=== PATIENT | male | born 1970 | race Caucasian/White ===

== ENCOUNTER 2016-11-03 22:11 | Observation (INO) ==
--- NOTE | 2016-11-03 22:39 | Emergency Department Report ---
General Adult HPI - General Chief complaint: Chest Pain Stated complaint: cp soa Time Seen by Provider: 11/03/16 22:16 Source: patient Mode of arrival: EMS Limitations: no limitations - History of Present Illness HPI narrative: 46-year-old male presents to emergency department with a chief complaint of left -sided chest discomfort. Patient noted onset of symptoms approximately 1 hour prior to arrival to the emergency department. Patient was shopping at [employer] when his symptoms began. Patient describes the pain as a dull pressure which he rates at 9/10 in the left chest. No radiation. Patient was given aspirin 324 mg by mouth times one by EMS prior to arrival to the emergency Department. Patient was also given a sublingual nitroglycerin trial which did not improve his discomfort. Symptoms have been persistent in nature since onset. No other complaints or associated symptoms. - Related Data Home Medications Medication Instructions Recorded Confirmed Atorvastatin [Lipitor] 1 tab PO HS 11/03/16 11/03/16 Dicyclomine [Bentyl] 10 mg PO Q6HR 11/03/16 11/03/16 Famotidine [Pepcid] 1 tab PO DAILY 11/03/16 11/03/16 HydrOXYzine [Atarax] 50 mg PO TID 11/03/16 11/03/16 Losartan/Hctz 50/12.5 [Hyzaar 1 tab PO DAILY 11/03/16 11/03/16 50/12.5] Nystatin Cream [Mycostatin] 1 applic TOP PRN 11/03/16 11/03/16 Omeprazole [Prilosec] 1 cap PO Q12H 11/03/16 11/03/16 Ondansetron [Zofran Odt] 1 tab PO Q6HR PRN 11/03/16 11/03/16 Allergies Allergy/AdvReac Type Severity Reaction Status Date / Time morphine Allergy Intermediate Hives Verified 11/03/16 22:52 Review of Systems Constitutional: Denies: fever, chills Eyes: Denies: eye pain, vision change ENT: Denies: ear pain, throat pain Cardiovascular: Reports: chest pain. Denies: palpitations Respiratory: Denies: cough, dyspnea, wheezes Gastrointestinal: Denies: abdominal pain, nausea, vomiting, diarrhea Genitourinary: Denies: urgency, dysuria Musculoskeletal: Denies: back pain, arthralgia Integumentary: Denies: erythema, rash Neurological: Denies: headache, numbness Psychiatric: Denies: anxiety, depression Endocrine: Denies: fatigue, heat or cold intolerance Hematological/Lymphatic: Denies: easy bleeding, easy bruising Allergic/Immunologic: Denies: facial swelling, urticaria PFSH Hypertension, hyperlipidemia, morbid obesity Family History: Reviewed and noncontributory. - Social History Smoking status: Never smoker Substance use type: does not use Alcohol intake frequency: does not drink Physical Exam - Limitations Limitations: no limitations - General General appearance: alert, in no apparent distress - Normal Exams: Head:: Normocephalic without trauma Eyes:: Pupils are PERRLA w/ EOMI, No scleral icterus, irritation, or foreign bodies noted ENMT:: No facial trauma, nasal exudates, pharyngeal erythema, or exudates are noted Dental: No fractured, loose, or missing teeth noted Neck:: Full range of motion, without adenopathy, JVD, bruits or thyromegaly Chest/Respirations:: Clear all tamayo, with good airflow, and symmetry bilaterally (chest wall is mildly tender to palpation.) Cardiovascular:: Regular rate and rhythm, without murmur or gallop, Pulses 2+ all extremities, capillary refill, <2 seconds all extremities Abdomen:: Bowel sounds positive, soft, non-tender, non-distended, no hepatosplenomegaly, masses or bruits noted Lymphatic:: No lymphadenopathy, or lymphedema noted Musculoskeletal:: No tenderness, or deformity noted, good range of motion, all extremities Integumentary:: No rashes, hives, or bruising noted, hair and nails, without abnormality Neurological:: Patient is alert, and oriented, cranial nerves, motor/sensory/ cerebellar, exams w/o gross deficits, to observation Psychiatric:: Patient exhibits, appropriate attention, emotion and affect Course Vital Signs Temperature 97.9 F 11/03/16 22:10 Respiratory Rate 11/03/16 22:10 Temperature 97.9 F 11/03/16 22:10 Pulse Rate 86 11/03/16 22:45 Respiratory Rate 11/03/16 22:10 Blood Pressure 126/79 11/03/16 22:35 Pulse Oximetry 92 11/03/16 22:45 Medical Decision Making - [facility] Narrative Medical decision making narrative: Labs/imaging were discussed in detail with the patient and questions are answered. Patient has received 324 mg of aspirin by mouth 1 today from EMS prior to arrival to the emergency department today. Patient received a sublingual nitroglycerin trial which did not improve his discomfort. Patient was given parental narcotic and antiemetic medications intravenously in the emergency department with improvement of symptoms. Patient is well known to myself from other facilities and will be admitted for ACS rule out to the service of the hospitalist with cardiology consultation. Patient was discussed with both Dr. Urbina and Dr. Fierro who are in agreement with the current plan of management. Patient is admitted to the hospital in improved condition. No further orders. Patient is in agreement with current plan of management. Patient will be admitted to the service of Dr. Diallo. With repositioning of the pulse ox and the patient, his oxygen saturation is 96 % consistently. PERC RULE is negative. - Differential Diagnosis chest pain, PA, ACS, Chest Wall Pain - Lab Data Result diagrams: 11/03/16 22:27 11/03/16 22:27 Lab Results 11/03/16 11/03/16 Range/Units 22:27 22:27 WBC 7.0 (4.5-11.0) T/MM3 RBC 4.91 (4.50-5.90) M/MM3 Hgb 12.7 L (13.5-17.5) GM/DL Hct 40.6 L (41-53) % MCV 82.7 (80-100) UM3 MCH 25.9 L (26-34) UUG MCHC 31.3 (31-37) GM/DL RDW Std Deviation 44.1 (36.9-50.2) FL Plt Count 291 (130-400) T/MM3 MPV 9.3 L (9.4-12.4) UM3 Immature Gran % (Auto) 0.1 (0.0-0.5) % Neut % (Auto) 66.9 H (33-66) % Lymph % (Auto) 23.9 (23-45) % [place] % (Auto) 7.1 (0-9.0) % Eos % (Auto) 1.7 (0-4) % Baso % (Auto) 0.3 (0-2) % Neut # 4.7 (1.8-7.7) T/MM3 Lymph # 1.7 (1-4.8) T/MM3 [place] # 0.5 (0-0.8) T/MM3 Eos # 0.1 (0-0.5) T/MM3 Baso # 0.0 (0-0.2) T/MM3 Abs Immat Gran (auto) 0.01 (0.00-0.03) T/MM3 Turbidity 24 H (0-20) Sodium 143 (134-144) MEQ/L Potassium 3.6 (3.6-5) MEQ/L Chloride 105 (98-107) MEQ/L Carbon Dioxide 25 (22-30) MEQ/L Anion Gap 13 (5-15) MEQ/L BUN 15.0 (9-20) MG/DL Creatinine 1.1 (0.8-1.5) MG/DL GFR Calculation 71 BUN/Creatinine Ratio 14 (6-26) RATIO Glucose 98 (75-110) MG/DL Calculated Osmolality 276 (261-280) MOSM/KG Calcium 9.1 (8.4-10.2) MG/DL Total Bilirubin 0.50 (0.20-1.30) MG/DL Icterus Index < 2 (0-7) AST 22 (17-59) U/L ALT 23 (21-72) U/L Alkaline Phosphatase 83 (38-126) U/L Troponin I < 0.012 (0-0.12) ng/ml Total Protein 8.0 (6.3-8.2) G/DL Albumin 4.0 (3.5-5.0) G/DL Globulin 4.0 H (2.4-3.6) G/DL Albumin/Globulin Ratio 1.0 L (1.1-2.2) RATIO Specimen Hemolysis 17 (0-25) - Radiology Data CXR - No acute processes. - EKG Data EKG #1 EKG results narrative: Sinus rhythm. 87 bpm. No STEMI. Disposition Clinical Impression: Chest pain Qualifiers: Chest pain type: other chest pain Qualified Code(s): R07.89 - Other chest pain Disposition: To [facility] Condition: Stable Time of Disposition: 23:10 (Admit. Dr. Diallo. ) - Seen By: physician
[2016-11-03] MEDS ORDERED: FentaNYL 100 MCG/2 ML INJECTION IVP PRN (22:46)
[2016-11-03] MEDS ORDERED: ONDANSETRON 4 MG/2 ML INJECTION IVP ONE (22:47)
[2016-11-04] MEDS ORDERED: PANTOPRAZOLE 40 MG INJECTION IVP ONE (00:12)
[2016-11-04] MEDS ORDERED: ACETAMINOPHEN 325 MG TABLET PO PRN (00:12)
[2016-11-04 00:30] VITALS: BMI 68.5
--- NOTE | 2016-11-04 00:50 | History & Physical Report ---
<Jadon Urbina Jermaine - Last Filed: 11/04/16 00:46> History of Present Illness Date: 11/04/16 Chief complaint: sharp chest pain HPI: This is a 46 y/o male who has a history of HTN and dyslipidemias. 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 The patient had been shopping when the symptoms came on. no shortness of breath, no diaphoresis, slight nausea with out emesis. The patient states that he may have had similar symptoms several years ago. In the ED the pain was resolved with NTG and currently is pain free. The workup in the ED was unremarkable. ED did discuss with cardiology who deferred to Hospitalist to admit. Review of Systems Review of systems: no headache, no change in vision, no fever, chills or sweats, no neck or jaw pain, patient's obesity results in chronic dyspnea with exertion no worse than base line. no cough, no congestion, no abdomen pain, slight nausea without emesis, loose stools for the past 3 days, chronic swelling in legs ,n ot worse. 10 point ROSortherwside negative except for described above. [facility] Patient Stated Medical History Migraine Yes Dental Problems Yes: DENTURES Hearing Loss Yes: LEFT EAR, HAVE HEARING AID Hypertension Yes Bronchitis Yes: EVERY FEW YEARS Diabetes Mellitus Type 2 Yes Gastroesophageal Reflux Yes Disease Hepatitis Yes: HEP C THAT HAS BEEN CURED, 2014 Hx Kidney Stones Yes: 1 YEAR AGO Osteoarthritis Yes: BOTH KNEES Depression Yes Surgical History: right ankle, herniorrhaphy, appendectomy Family History Updates: mother alive with HTN, father alive with CAD and pacemaker - Social History Smoking status: Never smoker Substance use type: does not use Alcohol intake: current Alcohol intake frequency: a few times a month Housing: house Household members: friend(s) Current occupational status: unemployed Medications Home Medications Medication Instructions Recorded Confirmed Type Atorvastatin [Lipitor] 1 tab PO HS 11/03/16 11/04/16 History Dicyclomine [Bentyl] 10 mg PO Q6HR 11/03/16 11/04/16 History Famotidine [Pepcid] 1 tab PO DAILY 11/03/16 11/03/16 History HydrOXYzine [Atarax] 50 mg PO TID 11/03/16 11/04/16 History Losartan/Hctz 50/12.5 [Hyzaar 1 tab PO DAILY 11/03/16 11/04/16 History 50/12.5] Nystatin Cream [Mycostatin] 1 applic TOP PRN 11/03/16 11/03/16 History Omeprazole [Prilosec] 1 cap PO Q12H 11/03/16 11/03/16 History Ondansetron [Zofran Odt] 1 tab PO Q6HR PRN 11/03/16 11/03/16 History Allergies Allergy/AdvReac Type Severity Reaction Status Date / Time morphine Allergy Intermediate Hives Verified 11/03/16 22:52 Exam Vital Signs: Temperature 96.6 F L 11/04/16 00:30 Pulse Rate 75 11/04/16 00:30 Respiratory Rate 18 11/04/16 00:30 Blood Pressure 123/69 11/04/16 00:30 Pulse Oximetry 94 11/04/16 00:30 Oxygen Delivery Method Room Air Telemetry Rhythm: Sinus Rhythm Height: 1.78 m Weight: 216.9 kg Body Mass Index: 68.5 - Constitutional Present: no acute distress, morbidly obese, cooperative - Routine HEENT Exam Head: Present: normocephalic, atraumatic Eye: Present: EOMI, conjunctivae pink ENT: Present: mucous membranes moist - Routine Neck Exam Present: supple, full ROM - Routine Cardiovascular Exam Present: no murmur - Routine Abdominal Exam Present: soft, normoactive bowel sounds, non distended. Absent: tenderness Comments: morbidly obese - Routine Extremities Exam Present: edema, full ROM - Routine Back/Spine/Pelvis Exam Back/Spine: Present: full ROM - Routine Skin Exam Present: intact - Routine Neurological Exam Present: alert, oriented X3, CN II-XII intact, moving all extremities, hearing grossly intact - Routine Psychiatric Exam Present: normal affect Results - Labs CBC & Chem 7: 11/03/16 22:27 11/03/16 22:27 Labs: labs reviewed and troponin negative. mild normocytic anemia - ECG Data Tracing #1 sinus without ischemic changes - Imaging and Cardiology Chest x-ray Additional comments: obese chest without cardiomegaliy, or acute process Assessment and Plan (1) Chest pain Current visit: Yes Status: Acute 11/04/16 00:54 patient presents with mostly atypical chest pain. exam is unrevealilng x for obesity. ekg quiet. initial tropnin negative. rule out on tele risk (HTN, dyslipidemi, family history). check A1C and lipid panel this am. DDX: MS, GERD , PUD, pleruesy, unstable angina. Note that cardiology called by ED team and is aware of patient. (2) Hypothyroid Current visit: Yes Status: Acute 11/04/16 00:55 at this time will check TSH and address as indicated. (3) Hypertension Current visit: Yes Status: Acute 11/04/16 00:55 patient on arb, will continue, adjust meds as indicated. (4) Dyslipidemia Current visit: Yes Status: Acute 11/04/16 00:56 continue statin at discharge, check lipid panel while here (5) Morbid obesity with BMI of 60.0-69.9, adult Current visit: Yes Status: Acute 11/04/16 00:57 to be aware of. this patient has significant limitations due to size DVT Prophylaxis: SCD's GI Prophylaxis: Protonix Resuscitation Status: Full Code Sepsis Assessment - Evaluation Sepsis screening result: No Definite Risk Hospital Course Summary Disclaimer: The visit summary below is not to be considered part of the above Progress Note. <Sami Diallo - Last Filed: 11/04/16 12:57> History of Present Illness Date: 11/04/16 [facility] [place] Patient Stated Medical History Migraine Yes Dental Problems Yes: DENTURES Hearing Loss Yes: LEFT EAR, HAVE HEARING AID Hypertension Yes Bronchitis Yes: EVERY FEW YEARS Diabetes Mellitus Type 2 Yes Gastroesophageal Reflux Yes Disease Hepatitis Yes: HEP C THAT HAS BEEN CURED, 2015 Hx Kidney Stones Yes: 1 YEAR AGO Osteoarthritis Yes: BOTH KNEES Depression Yes Exam Vital Signs: Temperature 96.5 F L 11/04/16 07:29 Pulse Rate 58 L 11/04/16 08:00 Respiratory Rate 16 11/04/16 07:29 Blood Pressure 126/80 11/04/16 07:29 Pulse Oximetry 95 11/04/16 07:29 Oxygen Delivery Method Room Air Height: 5 ft 10 in Weight: 216.5 kg Results - Labs CBC & Chem 7: 11/03/16 22:27 11/03/16 22:27 Assessment and Plan (1) Chest pain Current visit: Yes Status: Acute (2) Hypothyroid Current visit: Yes Status: Chronic (3) Hypertension Current visit: Yes Status: Chronic (4) Dyslipidemia Current visit: Yes Status: Chronic (5) Morbid obesity with BMI of 60.0-69.9, adult Current visit: Yes Status: Chronic Assessment and Plan: I have reviewed this pt data and examined him independently and agree with the above plan of care Steph - Pt is a 46 YO male with obesity that came with atypical CP, and is being kept for observation until he is ruled out. He has had cardiac workup before for CP as follows - 01/25 - cardiac cath showing no significant CAD and good LVEF. - 01/28 - TTE - LVEF of 55% - 09/13 - Stress Echo negative. Diagnosis 1) Chest pain - atypical with a negative cardiac cath in the last 12 months. - TnI x 3 negative. - Await for cardiology advise re: further workup. - Check D-Dimer due to obesity increasing risk of DVT/PE 2) Hypothyroidism ? - TSH is above 6 - Free T4 is normal. - Needs to have TSH followed up serially to see if he needs to be treated. 3) HTN - Stable. 4) H.O Depression Hospital Course Summary Disclaimer: The visit summary below is not to be considered part of the above Progress Note.
[2016-11-04] MEDS: ONDANSETRON 4 MG/2 ML INJECTION IVP PRN ×2 (01:04→07:53)
[2016-11-04] MEDS: FentaNYL 100 MCG/2 ML INJECTION IVP PRN ×3 (01:07→07:09)
[2016-11-04] MEDS: SALINE FLUSH 10ml SYRINGE IVF PRN ×3 (01:10→07:54)
--- NOTE | 2016-11-04 08:06 | XRay Report ---
Indication: cp PROCEDURE: XR chest 1V: Encounter: Initial Comparison: Portable chest, 06/19/2008 Findings: A single frontal chest radiograph demonstrates clear lungs and and an unenlarged heart. There is no pleural fluid. Trachea is midline. No pulmonary vascular engorgement. Bony structures intact as visualized. Impression: Negative for acute chest disease. .
--- NOTE | 2016-11-04 15:00 | Cardiology Consult Note ---
History of Present Illness Consult date: 11/04/16 Consult reason: chest pain Chief complaint: Atypical chest pain History of present illness: Mr. Sykes is a 46-year-old male with a history of HTN and dyslipidemia. The patient had an episode of sharp "stabbing" left substernal chest pain last night about 1 hour prior to admission. He states that he was shopping at the time the chest pain and dizziness occurred. In the ED the pain was slightly relieved with NTG and he is currently pain free. The workup in the ED was unremarkable. due to ongoing CP and risk factors, pt was admitted for observation. Patient currently denies chest pain, palpitations, dyspnea, and dizziness. He states that he has experienced episodes of chest pain in the past that he describes as feeling different than his most recent episode and describes the previous episodes as feeling more like pressure. Patient underwent a normal heart catheterization in January of [address] Linda Gutierrez ,and a stress echo in 2013 that were both unremarkable. EKG shows normal sinus rhythm and telemetry is normal. Review of Systems Comprehensive ROS: completed and no additional positive findings except those as stated (in HPI.) PFSH Patient Stated Medical History Migraine Yes Dental Problems Yes: DENTURES Hearing Loss Yes: LEFT EAR, HAVE HEARING AID Hypertension Yes Bronchitis Yes: EVERY FEW YEARS Diabetes Mellitus Type 2 Yes Gastroesophageal Reflux Yes Disease Hepatitis Yes: HEP C THAT HAS BEEN CURED, 2014 Hx Kidney Stones Yes: 1 YEAR AGO Osteoarthritis Yes: BOTH KNEES Depression Yes Surgical History: right ankle, herniorrhaphy, appendectomy - Social History Smoking status: Never smoker Medications Home Medications Medication Instructions Recorded Confirmed Type Atorvastatin [Lipitor] 1 tab PO HS 11/03/16 11/05/16 History Dicyclomine [Bentyl] 10 mg PO Q6HR 11/03/16 11/05/16 History HydrOXYzine [Atarax] 50 mg PO TID 11/03/16 11/05/16 History Losartan/Hctz 50/12.5 [Hyzaar 1 tab PO DAILY 11/03/16 11/05/16 History 50/12.5] Nystatin Cream [Mycostatin] 1 applic TOP PRN 11/03/16 11/05/16 History Allergies Allergy/AdvReac Type Severity Reaction Status Date / Time morphine Allergy Intermediate Hives Verified 11/05/16 08:48 Exam Vital signs: Temperature 96.5 F L 11/04/16 07:29 Pulse Rate 58 L 11/04/16 08:00 Respiratory Rate 16 11/04/16 07:29 Blood Pressure 126/80 11/04/16 07:29 Pulse Oximetry 95 11/04/16 07:29 Oxygen Delivery Method Room Air - Constitutional no acute distress, well nourished, well developed, morbidly obese - Routine HEENT Exam Head: Present: normocephalic, atraumatic ENT: Present: mucous membranes moist, oropharynx clear Nose: moist mucous membranes - Routine Neck Exam Present: supple, trachea midline. Absent: JVD, carotid bruit, thyromegaly - Routine Chest/Breast/Axilla Exam Chest wall: Absent: tenderness - Routine Respiratory Exam Present: CTA bilaterally - Routine Cardiovascular Exam Present: RRR, murmur (Soft 1/6 LOU) - Routine Abdominal Exam Present: soft, normoactive bowel sounds, non distended, non tender - Routine Extremities Exam Present: no edema - Routine Skin Exam Present: intact, dry, warm - Routine Neurological Exam Present: oriented X3, normal speech - Routine Psychiatric Exam Present: normal affect, normal thought process, cooperative Results 11/03/16 22:27 11/03/16 22:27 Cardiac Enzymes 11/04/16 11/04/16 Range/Units 03:59 09:31 Troponin I < 0.012 < 0.012 (0-0.12) ng/ml Intake and Output 11/03/16 11/04/16 11/04/16 22:59 06:59 14:59 Intake Total 2960 / 2960 Output Total 1200 / 1200 Balance 1760 / 1760 Intake: Oral 2960 / 2960 Output: Urine 1200 / 1200 Other: # Voids 1 # Bowel Movements 1 Weight 216.9 kg 216.5 kg Patient Weight 11/05/16 06:59 Weight 216.5 kg - EKG Interpretation EKG: sinus rhythm EKG shows: sinus rhythm EKG interpretations - EKG EKG results cardiology: sinus rhythm EKG shows: sinus rhythm (no acute changes of ischemia) Assessment and Plan (1) Atypical chest pain Status: Acute Ambulate. Patient is cleared to go home from a cardiology standpoint. Followup with Dr. Gutierrez. Hospital Course Summary Disclaimer: The visit summary below is not to be considered part of the above Progress Note. Hospital Course: 08/02/17 14:30 no recurrence of CP since admission. no evidence of acute cardiovascular process. Sepsis Assessment - Evaluation Sepsis screening result: No Definite Risk
--- NOTE | 2016-11-04 16:27 | Discharge Instructions ---
Discharge Plan - Med Rec/Dispo Referrals/Follow Up: Gabby Gutierrez MD [Physician] - [facility] Instructions: Noncardiac Chest Pain (GEN) Prescriptions: New Omeprazole [Prilosec] 20 mg PO ACBID #30 capsule Continue HydrOXYzine [Atarax] 50 mg PO TID Nystatin Cream [Mycostatin] 1 applic TOP PRN Losartan/Hctz 50/12.5 [Hyzaar 50/12.5] 1 tab PO DAILY Atorvastatin [Lipitor] 1 tab PO HS Dicyclomine [Bentyl] 10 mg PO Q6HR Changed Omeprazole [Prilosec] 1 cap PO ACB #30 capsule Discontinued Famotidine [Pepcid] 1 tab PO DAILY Ondansetron [Zofran Odt] 1 tab PO Q6HR PRN PRN Reason: Nausea - Disposition 01 Discharged Home, Self-Care
--- NOTE | 2016-11-04 16:34 | Discharge Summary ---
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 He has had workup in the past as follows: - 01/25 - cardiac cath showing no significant CAD and good LVEF. - 01/28 - TTE - LVEF of 55% - 09/13 - Stress Echo negative. Diagnosis 1) Chest pain - atypical with a negative cardiac cath in the last 12 months and TnI negative x 3. Pt has been seen by Cardiology and he will not need any more workup at this time pertaining to his heart. - TnI x 3 negative. - D-Dimer - negative. 2) Hypothyroidism ? - TSH is above 6 - Free T4 is normal. - Needs to have TSH followed up serially to see if he needs to be treated. 3) HTN - Stable. 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 History of Present Illness HPI: This is a 46 y/o male who has a history of HTN and dyslipidemias. 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 The patient had been shopping when the symptoms came on. no shortness of breath, no diaphoresis, slight nausea with out emesis. The patient states that he may have had similar symptoms several years ago. In the ED the pain was resolved with NTG and currently is pain free. The workup in the ED was unremarkable. ED did discuss with cardiology who deferred to Hospitalist to admit. Objective Vital signs: Temperature 95.8 F L 11/04/16 14:58 Pulse Rate 63 11/04/16 16:00 Respiratory Rate 16 11/04/16 14:58 Blood Pressure 129/70 11/04/16 14:58 Pulse Oximetry 96 11/04/16 14:58 Oxygen Delivery Method Room Air Rhythm: Normal Sinus Rhythm Weight: 216.5 kg - Constitutional Present: no acute distress - Routine HEENT Exam Head: Present: normocephalic, atraumatic Eye: Present: EOMI, PERRL - Routine Cardiovascular Exam Present: RRR - Routine Abdominal Exam Present: soft, non distended, non tender - Routine Extremities Exam Absent: cyanosis, clubbing - Routine Neurological Exam Present: alert, oriented X3 - Routine Psychiatric Exam Present: normal affect, good insight, good judgment Hospital Course Pt was kept in observation for R/O LA protoccol. He had 3 sets of enzymes that were negative. D-Dimer was negative. He had a cardiac cath about 9 months ago. He does not need further workup Discharge Plan - Med Rec/Dispo Referrals/Follow Up: Gabby Gutierrez MD [Physician] - [facility] Instructions: Noncardiac Chest Pain (GEN) Prescriptions: New Omeprazole [Prilosec] 20 mg PO ACBID #30 capsule Continue HydrOXYzine [Atarax] 50 mg PO TID Nystatin Cream [Mycostatin] 1 applic TOP PRN Losartan/Hctz 50/12.5 [Hyzaar 50/12.5] 1 tab PO DAILY Atorvastatin [Lipitor] 1 tab PO HS Dicyclomine [Bentyl] 10 mg PO Q6HR Changed Omeprazole [Prilosec] 1 cap PO ACB #30 capsule Discontinued Famotidine [Pepcid] 1 tab PO DAILY Ondansetron [Zofran Odt] 1 tab PO Q6HR PRN PRN Reason: Nausea - Disposition 01 Discharged Home, Self-Care
[2016-11-04] MEDS ORDERED: OMEPRAZOLE 20 MG CAPSULE PO SCH (17:00)
[2016-11-04 19:58] VITALS: BP 128/69; PULSE 76; RESP 24; TEMP 97.6; O2SAT 100
[2016-11-04] MEDS ORDERED: ATORVASTATIN 40 MG TABLET PO SCH (22:00)
== END 2016-11-04 23:08 | disposition home or self-care (01) ==
LOC: ED 22:11 → SRG 22:11
PROVIDERS: ADMIT Emergency Medicine; ATTEND Internal Medicine